=== PATIENT | female | born 1990 | race Caucasian/White ===

== ENCOUNTER 2017-04-21 18:56 | Emergency (ER) | payer OTHER ==
--- NOTE | 2017-04-21 20:43 | ED Physician Documentation ---
PD HPI LOWER EXT INJURY - Stated complaint Stated Complaint: KNEE INJURY - Chief complaint Chief Complaint: Ext Problem - History obtained from History obtained from: Patient - History of Present Illness PD HPI LOW EXT INJURY LOCATION: Right, Knee Type of injury: Fall, Twist Where injury occurred: Street Timing - onset: How many days ago (2) Timing - details: Abrupt onset, Waxing and waning Pain level now: 6 Improved by: Rest Worsened by: Moving Associated symptoms: No: Weakness, Numbness Recently seen: Not recently seen - Additional information Additional information: while running a foot race this weekend ([employer]), patient fell and twisted right knee. She says it did not hurt very much at the time, but that night (Friday night, two night ago from this current ED visit), it began hurting. Since then, it has become increasingly painful, particularly with movement or weight- bearing. Review of Systems Musculoskeletal: reports: Joint pain, Pain with weight bearing Neurologic: denies: Focal weakness, Numbness PD PAST MEDICAL HISTORY - Past Medical History Past Medical History: No - Past Surgical History Past Surgical History: No - Present Medications Home Medications: Ambulatory Orders Medication Instructions Recorded Confirmed No Known Home Medications [No 04/21/17 04/21/17 Known Home Medications] - Allergies Allergies/Adverse Reactions: Allergies Allergy/AdvReac Type Severity Reaction Status Date / Time No Known Drug Allergies Allergy Verified 04/21/17 19:05 PD ED PE NORMAL - Vitals Vital signs reviewed: Yes - General General: Alert and oriented X 3, No acute distress, Well developed/nourished - Derm Derm: Normal color, Warm and dry - Extremities Extremities: No deformity, No edema, Other (full ROM right knee, but c/o increasing pain with full flexion) - Neuro Neuro: No motor deficit, No sensory deficit PD ED PE EXPANDED - Extremities Extremities: Tenderness (mild direct patellar tenderness.) Results - Vitals Vitals: Vital Signs - 24 hr 04/21/17 04/21/17 19:02 21:53 Temperature 36.7 C 36.6 C Heart Rate 75 65 Respiratory 18 16 Rate Blood Pressure 136/86 H 124/78 O2 Saturation 97 96 Oxygen O2 Source Room air - Rads (name of study) right knee xrays Radiology: Prelim report reviewed, See rad report PD MEDICAL DECISION MAKING - ED course Complexity details: reviewed results, re-evaluated patient, considered differential, d/w patient Departure - Departure Disposition: 01 Home, Self Care Clinical Impression: Right knee sprain Condition: Good Instructions: ED Bandage Elastic Wrap, ED Crutch Walking, ED Sprain Knee Follow-Up: PALMER KOHLER [Primary Care Provider] - Discharge Date/Time: 04/21/17 22:20
--- NOTE | 2017-04-21 21:49 | XRAY Preliminary Report ---
Exam: XR Knee 3 View RT IMPRESSION: Normal knee radiography. [facility] SITE ID: [id number]
[2017-04-21 21:57] VITALS: BP 124/78
--- NOTE | 2017-04-21 22:00 | XRAY Report ---
EXAM: RIGHT KNEE RADIOGRAPHY EXAM DATE: 04/21/2017 09:24 PM. CLINICAL HISTORY: Lateral pain after a fall. COMPARISON: None. TECHNIQUE: 3 views. FINDINGS: Bones: Normal. No fractures or bone lesions. Joints: Normal. No effusion. No subluxations. Soft Tissues: Normal. No soft tissue swelling. IMPRESSION: Normal knee radiography. [facility] Referring Provider Line: [phone] SITE ID: [id number]
== END 2017-04-21 22:20 | disposition home or self-care (01) ==
LOC: ED 18:56
DX: S83.91XA Sprain of unspecified site of right knee, initial encounter (principal); W01.0XXA Fall on same level from slipping, tripping and stumbling without subsequent striking against object, initial encounter; Y93.02 Activity, running; Y92.488 Other paved roadways as the place of occurrence of the external cause
CPT/HCPCS: 99282; 99283

== ENCOUNTER 2017-09-07 11:04 | Emergency (ER) | payer OTHER ==
[2017-09-07] MEDS ORDERED: MECLIZINE 12.5 MG TABLET PO STA (11:53)
[2017-09-07] MEDS ORDERED: DEXAMETHASONE 10 MG/ML VIAL PO STA (11:53)
[2017-09-07] MEDS ORDERED: ONDANSETRON ODT 4 MG TABLET TL STA (11:53)
[2017-09-07] MEDS ORDERED: CHERRY SYRUP 10 ML UDC PO ONE (12:08)
[2017-09-07 12:54] VITALS: BP 106/54
--- NOTE | 2017-09-07 13:32 | ED Physician Documentation ---
History of Present Illness - Stated complaint Stated Complaint: DIZZINESS - Chief complaint Chief Complaint: Neuro - History obtained from History obtained from: Patient, Family - History of Present Illness Timing: Enter time (0700), Today - Additonal information Additional information: 26-year-old female was well yesterday she woke this morning with profound dizziness leading to nausea as well. She has had some dry heaves. She is has room spinning dizziness. She was not ill previously. Review of Systems Constitutional: denies: Fever, Chills, Fatigue Eyes: denies: Decreased vision Ears: denies: Ear pain Nose: denies: Congestion Throat: denies: Sore throat Cardiac: denies: Chest pain / pressure, Palpitations Respiratory: denies: Dyspnea, Cough GI: denies: Abdominal Pain, Nausea, Vomiting : denies: Dysuria, Frequency Skin: denies: Rash Musculoskeletal: denies: Neck pain, Back pain Neurologic: reports: Other (Dizziness). 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 - Present Medications Home Medications: Ambulatory Orders Medication Instructions Recorded Confirmed Implant Bc 1 09/07/17 Meclizine HCl 25 mg PO Q6HR PRN #20 tab.chew 09/07/17 Ondansetron Odt [Zofran] 4 mg TL Q6H PRN #10 tablet 09/07/17 - Allergies Allergies/Adverse Reactions: Allergies Allergy/AdvReac Type Severity Reaction Status Date / Time No Known Drug Allergies Allergy Verified 09/07/17 11:08 - Social History Does the pt smoke?: No Smoking Status: Never smoker Does the pt drink ETOH?: Yes Does the pt have substance abuse?: No - Immunizations Immunizations are current?: Yes PD ED PE NORMAL - Vitals Vital signs reviewed: Yes (Normal) - General General: Alert and oriented X 3, Well developed/nourished - HEENT HEENT: Atraumatic, PERRL, EOMI, Ears normal, Moist mucous membranes, Pharynx benign, Dentition benign, Other (There are 4 beats of nystagmus to the left 3 to the right) - Neck Neck: Supple, no meningeal sign, No bony TTP - Cardiac Cardiac: RRR, No murmur - Respiratory Respiratory: No respiratory distress, Clear bilaterally - Abdomen Abdomen: Soft, Non tender - Back Back: No CVA TTP, No spinal TTP - Derm Derm: Normal color, Warm and dry, No rash - Extremities Extremities: No deformity, No edema - Neuro Neuro: No motor deficit, No sensory deficit Eye Opening: Spontaneous Motor: Obeys Commands Verbal: Oriented GCS Score: 15 - Psych Psych: Normal mood, Normal affect Results - Vitals Vitals: Vital Signs - 24 hr 09/07/17 09/07/17 09/07/17 11:06 12:26 12:54 Temperature 36 C L Heart Rate 77 59 L 52 L Respiratory 18 12 Rate Blood Pressure 129/75 101/64 106/54 L O2 Saturation 100 100 100 Oxygen O2 Source Room air PD MEDICAL DECISION MAKING - ED course Complexity details: considered differential, d/w patient, d/w family ED course: 26-year-old female with acute vertigo appears to have labyrinthitis. This has occurred at a time where a number of cases of labyrinthitis have been present in the department in the past 3 weeks.Here in the emergency department she is administered dexamethasone 10 mg orally meclizine 25 mg and Zofran 4 mg.She has marked improvement in her dizziness and symptoms. Departure - Departure Disposition: 01 Home, Self Care Clinical Impression: Labyrinthitis Qualifiers: Laterality: bilateral Qualified Code(s): H83.03 - Labyrinthitis, bilateral Condition: Stable Instructions: ED Labyrinthitis Follow-Up: PAMLER KOHLER [Primary Care Provider] - Prescriptions: Meclizine HCl 25 mg PO Q6HR PRN #20 tab.chew PRN Reason: Dizziness Ondansetron Odt [Zofran] 4 mg TL Q6H PRN #10 tablet PRN Reason: Nausea / Vomiting Forms: Activity restrictions
== END 2017-09-07 13:39 | disposition home or self-care (01) ==
LOC: ED 11:04
DX: H83.03 Labyrinthitis, bilateral (principal)
CPT/HCPCS: 99283; A9270; Q0162

== ENCOUNTER 2018-04-05 18:53 | Emergency (ER) | payer OTHER ==
--- NOTE | 2018-04-05 19:44 | ED Physician Documentation ---
PD HPI HEAD INJURY - Stated complaint Stated Complaint: PARKER/VOMITING - Chief complaint Chief Complaint: Neuro - History obtained from History obtained from: Patient - History of Present Illness Mechanism of head injury: Blow (Around 330 this afternoon she was doing chin ups and hit the bar. She developed a headache and several episodes of vomiting , all of which are improved at this juncture. She still feels a little out of it but the headache is gone and the nausea is only mild. 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 - Present Medications Home Medications: Ambulatory Orders Medication Instructions Recorded Confirmed No Known Home Medications [No 04/05/18 04/05/18 Known Home Medications] - Allergies Allergies/Adverse Reactions: Allergies Allergy/AdvReac Type Severity Reaction Status Date / Time No Known Drug Allergies Allergy Verified 04/05/18 18:58 - Social History Does the pt smoke?: No Smoking Status: Never smoker Does the pt drink ETOH?: No Does the pt have substance abuse?: No - Immunizations Immunizations are current?: Yes - POLST Patient has POLST: No PD ED PE NORMAL - Vitals Vital signs reviewed: Yes - General General: Alert and oriented X 3, No acute distress - HEENT HEENT: PERRL, EOMI - Neck Neck: Supple, no meningeal sign, No bony TTP - Neuro Neuro: Alert and oriented X 3, sampler radioactive waste 2-12 intact Eye Opening: Spontaneous Motor: Obeys Commands Verbal: Oriented GCS Score: 15 - Psych Psych: Normal mood, Normal affect Results - Vitals Vitals: Vital Signs - 24 hr 04/05/18 18:56 Temperature 36.4 C L Heart Rate 60 Respiratory 18 Rate Blood Pressure 133/67 H O2 Saturation 98 Oxygen O2 Source Room air PD MEDICAL DECISION MAKING - ED course ED course: No hard findings and improving symptoms, I discussed potentially a CT scan with her which she declined and will have her friend watch her at home. - Sepsis Event Vital Signs: Vital Signs - 24 hr 04/05/18 18:56 Temperature 36.4 C L Heart Rate 60 Respiratory 18 Rate Blood Pressure 133/67 H O2 Saturation 98 Oxygen O2 Source Room air Departure - Departure Disposition: 01 Home, Self Care Clinical Impression: Concussion Qualifiers: Encounter type: initial encounter Loss of consciousness presence/duration: without LOC Qualified Code(s): S06.0X0A - Concussion without loss of consciousness, initial encounter Condition: Good Record reviewed to determine appropriate education?: Yes Instructions: ED Head Injury Closed Comments: Have your roommate watch you, check on you at least once an hour till midnight. Return for new or worsening symptoms. Forms: Activity restrictions
[2018-04-05 20:02] VITALS: BP 116/78
== END 2018-04-05 20:02 | disposition home or self-care (01) ==
LOC: ED 18:53
DX: S06.0X0A Concussion without loss of consciousness, initial encounter (principal); W21.89XA Striking against or struck by other sports equipment, initial encounter; Y93.B2 Activity, push-ups, pull-ups, sit-ups
CPT/HCPCS: 99282; 99283

== ENCOUNTER 2018-05-03 09:22 | Emergency (ER) | payer OTHER ==
[2018-05-03] MEDS ORDERED: SODIUM CHLORIDE 0.9% 1,000 ML IV ONE (10:44)
[2018-05-03] MEDS ORDERED: ONDANSETRON 4 MG/2 ML VIAL IVP STA (10:44)
--- NOTE | 2018-05-03 10:46 | ED Physician Documentation ---
PD HPI NVD - Stated complaint Stated Complaint: ABD PX/N/V/NO VOIDING 24 HRS - Chief complaint Chief Complaint: Abd Pain - History obtained from History obtained from: Patient - History of Present Illness Timing - onset: Enter time (0200), Yesterday Timing - duration: Hours (30) Timing - details: Abrupt onset, Still present Associated symptoms: Abdominal pain Contributing factors: Alcohol use Improved by: Laying still, Vomiting Similar symptoms before: Diagnosis (labyrinthitis) Recently seen: Not recently seen - Additonal information Additional information: 27-year-old female states that she was out drinking 2 nights ago and at about 2: 00 morning she developed nausea and vomiting she has had vomiting nonstop since then. She does have some generalized abdominal pain. Review of Systems Constitutional: reports: Fatigue. denies: Fever Eyes: denies: Decreased vision Ears: denies: Ear pain Nose: denies: Congestion Throat: denies: Sore throat Cardiac: denies: Chest pain / pressure, Palpitations Respiratory: denies: Dyspnea, Cough GI: reports: Abdominal Pain, Nausea, Vomiting. 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 - Present Medications Home Medications: Ambulatory Orders Medication Instructions Recorded Confirmed Ondansetron Odt [Zofran] 4 mg TL Q6H PRN #10 tablet 05/03/18 - Allergies Allergies/Adverse Reactions: Allergies Allergy/AdvReac Type Severity Reaction Status Date / Time No Known Drug Allergies Allergy Verified 05/03/18 09:31 - Social History Does the pt smoke?: No Smoking Status: Never smoker Does the pt drink ETOH?: No Does the pt have substance abuse?: No - Immunizations Immunizations are current?: Yes - POLST Patient has POLST: No PD ED PE NORMAL - Vitals Vital signs reviewed: Yes (hypertensive) - General General: Alert and oriented X 3, No acute distress, Well developed/nourished - HEENT HEENT: Atraumatic, PERRL, EOMI, Other (dry mucous membranes) - Neck Neck: Supple, no meningeal sign, No bony TTP - Cardiac Cardiac: RRR, No murmur - Respiratory Respiratory: No respiratory distress, Clear bilaterally - Abdomen Abdomen: Soft, Other (mild tenderness) - Back Back: No CVA TTP, No spinal TTP - Derm Derm: Normal color, Warm and dry, No rash - Extremities Extremities: No deformity, No edema - Neuro Neuro: Alert and oriented X 3, No motor deficit, No sensory deficit, Normal speech Results - Vitals Vitals: Vital Signs - 24 hr 05/03/18 05/03/18 09:29 13:34 Temperature 36.8 C Heart Rate 63 68 Respiratory 20 16 Rate Blood Pressure 146/102 H 136/87 H O2 Saturation 100 100 Oxygen O2 Source Room air - Labs Labs: Laboratory Tests 05/03/18 05/03/18 05/03/18 10:30 10:30 13:00 WBC 7.6 RBC 4.91 Hgb 14.1 Hct 41.6 MCV 84.9 MCH 28.8 MCHC 33.9 RDW 13.8 Plt Count 241 MPV 8.5 Neut # (Auto) 6.1 Lymph # (Auto) 1.1 L [place] # (Auto) 0.4 Eos # (Auto) 0.0 Baso # (Auto) 0.0 Absolute Nucleated RBC 0.00 Nucleated RBC % 0.0 Sodium 135 Potassium 4.1 Chloride 100 L Carbon Dioxide 26 Anion Gap 9.0 BUN 14 Creatinine 0.8 Estimated GFR (MDRD) 87 L Glucose 132 H Calcium 9.2 Total Bilirubin 1.1 H AST 35 ALT 36 Alkaline Phosphatase 62 Total Protein 7.5 Albumin 4.5 Globulin 3.0 Albumin/Globulin Ratio 1.5 Lipase 35 Urine Color YELLOW Urine Clarity CLEAR Urine pH 7.5 Ur Specific [place] 1.015 Urine Protein 30 H Urine Glucose (UA) NEGATIVE Urine Ketones NEGATIVE Urine Occult Blood NEGATIVE Urine Nitrite NEGATIVE Urine Bilirubin NEGATIVE Urine Urobilinogen 0.2 (NORMAL) Ur Leukocyte Esterase NEGATIVE Urine RBC None Seen Urine WBC 0-3 Ur Squamous Epith Cells FEW Squamous Urine Bacteria None Seen Ur Microscopic Review INDICATED Urine Culture Comments NOT INDICATED Urine HCG, Qual 05/03/18 13:00 WBC RBC Hgb Hct MCV MCH MCHC RDW Plt Count MPV Neut # (Auto) Lymph # (Auto) [place] # (Auto) Eos # (Auto) Baso # (Auto) Absolute Nucleated RBC Nucleated RBC % Sodium Potassium Chloride Carbon Dioxide Anion Gap BUN Creatinine Estimated GFR (MDRD) Glucose Calcium Total Bilirubin AST ALT Alkaline Phosphatase Total Protein Albumin Globulin Albumin/Globulin Ratio Lipase Urine Color Urine Clarity Urine pH Ur Specific [place] 1.015 Urine Protein Urine Glucose (UA) Urine Ketones Urine Occult Blood Urine Nitrite Urine Bilirubin Urine Urobilinogen Ur Leukocyte Esterase Urine RBC Urine WBC Ur Squamous Epith Cells Urine Bacteria Ur Microscopic Review Urine Culture Comments Urine HCG, Qual NEGATIVE Procedures - IVC sono (time) 1035 Bedside IVC sono: IVC measures (cm) (1.27), Dehydration (mild) PD MEDICAL DECISION MAKING - ED course Complexity details: reviewed results, re-evaluated patient, considered differential, d/w patient, d/w family ED course: 27 y/o female with acute gastritis with vomiting is given IV saline and does not have much relief with the zofran she is subsequently given PO phenergan. - Sepsis Event Vital Signs: Vital Signs - 24 hr 05/03/18 05/03/18 09:29 13:34 Temperature 36.8 C Heart Rate 63 68 Respiratory 20 16 Rate Blood Pressure 146/102 H 136/87 H O2 Saturation 100 100 Oxygen O2 Source Room air Departure - Departure Disposition: 01 Home, Self Care Clinical Impression: Gastroenteritis Condition: Stable Instructions: ED Gastroenteritis Vs Food Poison Follow-Up: PALMER KOHLER [Primary Care Provider] - Prescriptions: Ondansetron Odt [Zofran] 4 mg TL Q6H PRN #10 tablet PRN Reason: Nausea / Vomiting Discharge Date/Time: 05/03/18 13:35
[2018-05-03 10:49] LABS: BASOPHILS % (AUTO) 0.4 %; HGB - HEMOGLOBIN 14.1 g/dL (12.0-16.0); LYMPHOCYTES # (AUTO) 1.1 10^3/uL (1.5-3.5); LYMPHOCYTES % (AUTO) 14.8 %; MEAN CORPUSCULAR HEMOGLOBIN 28.8 pg (27.0-31.0); MEAN CORPUSCULAR HGB CONC 33.9 g/dL (32.0-36.0); MEAN CORPUSCULAR VOLUME 84.9 fL (81.0-99.0); MEAN PLATELET VOLUME 8.5 fL (7.9-10.8); MONOCYTES # (AUTO) 0.4 10^3/uL (0.0-1.0); MONOCYTES % (AUTO) 5.2 %; NEUTROPHILS # (AUTO) 6.1 10^3/uL (1.5-6.6); NEUTROPHILS % (AUTO) 79.6 %; PLT - PLATELET COUNT 241 10^3/uL (130-450); RED BLOOD COUNT 4.91 10^6/uL (4.20-5.40); RED CELL DISTRIBUTION WIDTH 13.8 % (12.0-15.0); WHITE BLOOD COUNT 7.6 x10^3/uL (4.8-10.8)
[2018-05-03 11:02] LABS: ALBUMIN 4.5 g/dL (3.2-5.5); ALBUMIN/GLOBULIN RATIO 1.5 (1.0-2.2); BILIRUBIN,TOTAL 1.1 mg/dL (0.2-1.0); CALCIUM 9.2 mg/dL (8.5-10.3); CREATININE 0.8 mg/dL (0.4-1.0); TOTAL PROTEIN 7.5 g/dL (6.7-8.2)
[2018-05-03] MEDS ORDERED: PROMETHAZINE 25 MG TABLET PO STA (12:58)
[2018-05-03 13:12] LABS: BILIRUBIN,URINE NEGATIVE (NEGATIVE); GLUCOSE, URINE (UA) NEGATIVE (NEGATIVE); KETONES,URINE (UA) NEGATIVE (NEGATIVE); LEUKOCYTE ESTERASE, URINE NEGATIVE (NEGATIVE); NITRITE,URINE NEGATIVE (NEGATIVE); OCCULT BLOOD,URINE NEGATIVE (NEGATIVE); PH,URINE 7.5 PH (5.0-7.5); PROTEIN,URINE 30 mg/dL (NEGATIVE); UROBILINOGEN,URINE 0.2 (NORMAL) E.U./dL (NORMAL)
[2018-05-03 13:14] LABS: CLARITY,URINE CLEAR (CLEAR); HCG UR QUAL NEGATIVE
[2018-05-03 13:19] LABS: BACTERIA,URINE None Seen /HPF (None Seen); RBC,URINE None Seen /HPF (0-5); SQUAMOUS EPITHELIAL CELL,UR FEW Squamous (<= Few)
[2018-05-03 13:36] VITALS: BP 136/87
== END 2018-05-03 13:35 | disposition home or self-care (01) ==
LOC: ED 09:22
DX: K52.9 Noninfective gastroenteritis and colitis, unspecified (principal); E86.0 Dehydration
CPT/HCPCS: 36415; 80053; 81001; 81025; 83690; 85025; 96361; 96374; 99283; Q0169; 81003; 87086

== ENCOUNTER 2018-05-10 11:23 | Emergency (ER) | payer OTHER ==
[2018-05-10 11:57] LABS: BILIRUBIN,URINE NEGATIVE (NEGATIVE); GLUCOSE, URINE (UA) NEGATIVE (NEGATIVE); KETONES,URINE (UA) NEGATIVE (NEGATIVE); LEUKOCYTE ESTERASE, URINE NEGATIVE (NEGATIVE); NITRITE,URINE NEGATIVE (NEGATIVE); OCCULT BLOOD,URINE NEGATIVE (NEGATIVE); PROTEIN,URINE TRACE mg/dL (NEGATIVE); UROBILINOGEN,URINE 0.2 (NORMAL) E.U./dL (NORMAL)
[2018-05-10 11:58] LABS: CLARITY,URINE CLOUDY (CLEAR)
[2018-05-10 12:00] LABS: BASOPHILS % (AUTO) 0.7 %; HGB - HEMOGLOBIN 15.7 g/dL (12.0-16.0); LYMPHOCYTES # (AUTO) 1.2 10^3/uL (1.5-3.5); MEAN CORPUSCULAR HEMOGLOBIN 28.7 pg (27.0-31.0); MEAN CORPUSCULAR HGB CONC 34.5 g/dL (32.0-36.0); MEAN CORPUSCULAR VOLUME 83.4 fL (81.0-99.0); MEAN PLATELET VOLUME 8.1 fL (7.9-10.8); MONOCYTES # (AUTO) 0.2 10^3/uL (0.0-1.0); NEUTROPHILS # (AUTO) 4.3 10^3/uL (1.5-6.6); NEUTROPHILS % (AUTO) 75.3 %; PLT - PLATELET COUNT 315 10^3/uL (130-450); RED BLOOD COUNT 5.45 10^6/uL (4.20-5.40); RED CELL DISTRIBUTION WIDTH 13.4 % (12.0-15.0); WHITE BLOOD COUNT 5.8 x10^3/uL (4.8-10.8)
[2018-05-10 12:01] LABS: HCG UR QUAL NEGATIVE
[2018-05-10 12:12] LABS: ALBUMIN 4.9 g/dL (3.2-5.5); ALBUMIN/GLOBULIN RATIO 1.5 (1.0-2.2); CALCIUM 9.5 mg/dL (8.5-10.3); CREATININE 0.7 mg/dL (0.4-1.0); TOTAL PROTEIN 8.1 g/dL (6.7-8.2)
[2018-05-10 12:14] LABS: BACTERIA,URINE Few /HPF (None Seen); RBC,URINE 0-5 /HPF (0-5); SQUAMOUS EPITHELIAL CELL,UR MOD Squamous (<= Few)
[2018-05-10] MEDS ORDERED: LIDOCAINE VISCOUS 2% 15 ML UDC MM STA ×2 (12:41→13:50)
[2018-05-10] MEDS ORDERED: SODIUM CHLORIDE 0.9% 1,000 ML IV ONE (12:41)
[2018-05-10] MEDS ORDERED: MAG HYDROX/AL HYDROX/SIMETH 30 ML UDC PO STA ×2 (12:42→13:51)
[2018-05-10] MEDS ORDERED: SUCRALFATE 1 GM/10 ML UDC PO STA ×2 (12:42→13:51)
--- NOTE | 2018-05-10 12:47 | ED Physician Documentation ---
PD HPI ABD PAIN - Stated complaint Stated Complaint: ABD PX - Chief complaint Chief Complaint: Abd Pain - History obtained from History obtained from: Patient - History of Present Illness Timing - onset: How many weeks ago (1) Timing - duration: Weeks (1) Timing - details: Abrupt onset, Still present Quality: Sharp, Pain Location: Epigastric Radiation: Upper back Improved by: Meds Worsened by: Eating Associated symptoms: Nausea. No: Vomiting Similar symptoms before: Diagnosis (food poisoning) Recently seen: Clinic - Additional information Additional information: 27-year-old female seen in the emergency department 1 week ago with acute gastroenteritis with nausea and vomiting after night of drinking. She thought she might have food poisoning at that time. She had good relief of her symptoms with treatment but continued to have pain and has been into the see the clinic 3 times. She has recently been started on omeprazole. Despite this after 3 days of of treatment she has worse pain. She denies any use of ibuprofen Aleve aspirin or alcohol. 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 - Present Medications Home Medications: Ambulatory Orders Medication Instructions Recorded Confirmed Ondansetron Odt [Zofran] 4 mg TL Q6H PRN #10 tablet 05/03/18 Sucralfate [Carafate] 1 gm PO ACHS #30 tablet 05/10/18 - Allergies Allergies/Adverse Reactions: Allergies Allergy/AdvReac Type Severity Reaction Status Date / Time No Known Drug Allergies Allergy Verified 05/03/18 09:31 - Social History Does the pt smoke?: No Smoking Status: Never smoker Does the pt drink ETOH?: No Does the pt have substance abuse?: No - Immunizations Immunizations are current?: Yes - POLST Patient has POLST: No PD ED PE NORMAL - Vitals Vital signs reviewed: Yes (tachy and hypertensive) - General General: Alert and oriented X 3, Well developed/nourished, Other (The patient has the look of pain on her face with demi chef tone and flat affect. ) - HEENT HEENT: Atraumatic, PERRL, EOMI, Ears normal - Neck Neck: Supple, no meningeal sign, No bony TTP - Cardiac Cardiac: No murmur, Other (tachy to 100) - Respiratory Respiratory: No respiratory distress, Clear bilaterally - Abdomen Abdomen: Soft, Other (epigastric tenderness is reproducible ) - Back Back: No CVA TTP, No spinal TTP - Derm Derm: Normal color, Warm and dry, No rash - Extremities Extremities: No deformity, No edema - Neuro Neuro: Alert and oriented X 3, lab support service tech 2-12 intact, No motor deficit, No sensory deficit, Normal speech Eye Opening: Spontaneous Motor: Obeys Commands Verbal: Oriented GCS Score: 15 - Psych Psych: Normal mood, Normal affect Results - Vitals Vitals: Vital Signs - 24 hr 05/10/18 05/10/18 11:39 14:07 Temperature 36.9 C Heart Rate 110 H 77 Respiratory 16 18 Rate Blood Pressure 150/88 H 144/105 H O2 Saturation 100 100 Oxygen O2 Source Room air - Labs Labs: Laboratory Tests 05/10/18 05/10/18 05/10/18 11:55 11:55 11:55 WBC 5.8 RBC 5.45 H Hgb 15.7 Hct 45.5 MCV 83.4 MCH 28.7 MCHC 34.5 RDW 13.4 Plt Count 315 MPV 8.1 Neut # (Auto) 4.3 Lymph # (Auto) 1.2 L [place] # (Auto) 0.2 Eos # (Auto) 0.0 Baso # (Auto) 0.0 Absolute Nucleated RBC 0.00 Nucleated RBC % 0.0 Sodium 133 L Potassium 4.4 Chloride 98 L Carbon Dioxide 25 Anion Gap 10.0 BUN 13 Creatinine 0.7 Estimated GFR (MDRD) 101 Glucose 113 H Calcium 9.5 Total Bilirubin 1.0 AST 23 ALT 24 Alkaline Phosphatase 70 Total Protein 8.1 Albumin 4.9 Globulin 3.2 Albumin/Globulin Ratio 1.5 Lipase 40 Urine Color YELLOW Urine Clarity CLOUDY Urine pH 8.0 H Ur Specific [place] 1.015 Urine Protein TRACE Urine Glucose (UA) NEGATIVE Urine Ketones NEGATIVE Urine Occult Blood NEGATIVE Urine Nitrite NEGATIVE Urine Bilirubin NEGATIVE Urine Urobilinogen 0.2 (NORMAL) Ur Leukocyte Esterase NEGATIVE Urine RBC 0-5 Urine WBC 0-3 Ur Squamous Epith Cells MOD Squamous H Urine Bacteria Few Ur Microscopic Review INDICATED Urine Culture Comments NOT INDICATED Urine HCG, Qual NEGATIVE Procedures - IVC sono (time) 1235 Bedside IVC sono: IVC measures (cm) (1.72), IVC collapsed c insp (cm) (complete) , Dehydration (mild est at 1 liter deficit.) PD MEDICAL DECISION MAKING - ED course Complexity details: reviewed old records, reviewed results, re-evaluated patient , considered differential, d/w patient ED course: 27-year-old female with gastroenteritis a week ago has had persistent abdominal pain since that time. She has some relief of the pain with a GI cocktail consisting of viscous lidocaine Mylanta and Carafate. She has incomplete relief of the pain and she is subsequently given a second GI cocktail and Pepcid intravenously. She has further improvement in her pain. She will continue the Carafate and I have instructed her to continue taking her omeprazole and to follow-up with her primary care doctor especially if she has recurrence of her symptoms when she finishes her medications. - Sepsis Event Vital Signs: Vital Signs - 24 hr 05/10/18 05/10/18 11:39 14:07 Temperature 36.9 C Heart Rate 110 H 77 Respiratory 16 18 Rate Blood Pressure 150/88 H 144/105 H O2 Saturation 100 100 Oxygen O2 Source Room air Departure - Departure Disposition: 01 Home, Self Care Clinical Impression: Gastritis Qualifiers: Gastritis type: unspecified gastritis Chronicity: acute Gastritis bleeding: without bleeding Qualified Code(s): K29.00 - Acute gastritis without bleeding Condition: Stable Instructions: ED PUD Vs Gastritis Follow-Up: PALMER KOHLER [Primary Care Provider] - Prescriptions: Sucralfate [Carafate] 1 gm PO ACHS #30 tablet Forms: Activity restrictions
[2018-05-10] MEDS ORDERED: FAMOTIDINE 20 MG in SODIUM CHLORIDE 0.9% 50 ML IV STA (13:51)
[2018-05-10 14:49] VITALS: BP 142/105
== END 2018-05-10 14:56 | disposition home or self-care (01) ==
LOC: ED 11:23
DX: K29.70 Gastritis, unspecified, without bleeding (principal)
CPT/HCPCS: 36415; 80053; 81001; 81025; 83690; 85025; 96361; 96365; 99283; A9270; J7040; 81003; 87086

== ENCOUNTER 2018-05-11 21:10 | Emergency (ER) | payer OTHER ==
[2018-05-11] MEDS ORDERED: SODIUM CHLORIDE 0.9% 1,000 ML IV ONE (22:13)
[2018-05-11] MEDS ORDERED: METOCLOPRAMIDE 10 MG/2 ML VIAL IVP STA (22:13)
[2018-05-11] MEDS ORDERED: FAMOTIDINE 20 MG in SODIUM CHLORIDE 0.9% 50 ML IV ONE (22:13)
--- NOTE | 2018-05-11 22:25 | ED Physician Documentation ---
PD HPI ABD PAIN - Stated complaint Stated Complaint: ABD PX - Chief complaint Chief Complaint: Abd Pain - Additional information Additional information: 27-year-old female presents the emergency department with epigastric pain and nausea and vomiting for the past several days. The patient's been seen numerous times in the emergency department for similar. The patient currently is being treated for a Possible ulcer. The patient reports increased pain and nausea and vomiting today. The patient denies lower abdominal pain, vaginal bleeding or vaginal discharge or chest pain or shortness of breath. Symptoms are described as moderate. No radiation of symptoms. No specific triggering factors. No relieving factors Review of Systems Constitutional: denies: Fever, Chills Eyes: denies: Discharge Ears: denies: Ear pain Nose: denies: Rhinorrhea / runny nose Throat: denies: Sore throat Cardiac: denies: Chest pain / pressure GI: reports: Abdominal Pain, Nausea, Vomiting : denies: Dysuria Musculoskeletal: denies: Neck pain Neurologic: denies: Generalized weakness Immunocompromised: denies: Chemotherapy PD PAST MEDICAL HISTORY - Past Medical History Cardiovascular: None Respiratory: None Neuro: None Endocrine/Autoimmune: None GI: Ulcers DISABILITY EXAMINER: None : None HEENT: None Psych: None Musculoskeletal: None Derm: None - Past Surgical History Past Surgical History: Yes /DISABILITY EXAMINER: Breast reduction - Present Medications Home Medications: Ambulatory Orders Medication Instructions Recorded Confirmed Ondansetron Odt [Zofran] 4 mg TL Q6H PRN #10 tablet 05/03/18 Sucralfate [Carafate] 1 gm PO ACHS #30 tablet 05/10/18 - Allergies Allergies/Adverse Reactions: Allergies Allergy/AdvReac Type Severity Reaction Status Date / Time No Known Drug Allergies Allergy Verified 05/11/18 21:23 - Social History Does the pt smoke?: No Smoking Status: Never smoker Does the pt drink ETOH?: No Does the pt have substance abuse?: No - Immunizations Immunizations are current?: Yes - POLST Patient has POLST: No PD ED PE NORMAL - General General: Alert and oriented X 3, No acute distress - HEENT HEENT: Atraumatic, PERRL, EOMI, Ears normal - Neck Neck: Supple, no meningeal sign - Cardiac Cardiac: RRR - Respiratory Respiratory: No respiratory distress, Clear bilaterally - Abdomen Abdomen: Soft, Non distended. No: Non tender (The patient has tenderness in the upper abdomen, no rebound or peritoneal signs. The patient has no lower abdominal tenderness) - Back Back: No CVA TTP - Derm Derm: Normal color - Psych Psych: Normal mood Results - Vitals Vitals: Vital Signs - 24 hr 05/11/18 21:18 Temperature 37.0 C Heart Rate 68 Respiratory 18 Rate Blood Pressure 158/104 H O2 Saturation 100 Oxygen O2 Source Room air - Labs Labs: Laboratory Tests 05/11/18 05/11/18 05/12/18 22:38 22:38 00:05 WBC 8.2 RBC 5.17 Hgb 15.1 Hct 43.1 MCV 83.5 MCH 29.2 MCHC 34.9 RDW 13.2 Plt Count 261 MPV 8.5 Neut # (Auto) 5.7 Lymph # (Auto) 1.9 [place] # (Auto) 0.3 Eos # (Auto) 0.0 Baso # (Auto) 0.1 Absolute Nucleated RBC 0.00 Nucleated RBC % 0.0 Sodium 134 L Potassium 3.4 L Chloride 98 L Carbon Dioxide 26 Anion Gap 10.0 BUN 15 Creatinine 0.8 Estimated GFR (MDRD) 87 L Glucose 111 H Calcium 9.7 Total Bilirubin 0.8 AST 22 ALT 22 Alkaline Phosphatase 73 Total Protein 8.2 Albumin 5.0 Globulin 3.2 Albumin/Globulin Ratio 1.6 Lipase 72 H Urine Color YELLOW Urine Clarity CLEAR Urine pH 8.0 H Ur Specific [place] 1.010 Urine Protein NEGATIVE Urine Glucose (UA) NEGATIVE Urine Ketones TRACE Urine Occult Blood NEGATIVE Urine Nitrite NEGATIVE Urine Bilirubin NEGATIVE Urine Urobilinogen 0.2 (NORMAL) Ur Leukocyte Esterase NEGATIVE Ur Microscopic Review NOT INDICATED Urine Culture Comments NOT INDICATED Urine HCG, Qual NEGATIVE - Rads (name of study) CT abd\pelvis Radiology: Final report received (1. Appendix is partially seen and visualized portions appear normal. 2. Moderate to large amount of stool in the colon, right greater than left. 3. No acute inflammatory or obstructive process identified. ) PD MEDICAL DECISION MAKING - ED course ED course: The patient's workup does not reveal any significant abnormality that explains her symptoms. On reevaluation the patient resting comfortably and currently appears appropriate for discharge home and on point management as an outpatient. The patient is scheduled to see GI. I discussed warning signs and recommended returning to the emergency department immediately for any worsening or any concerns. - Sepsis Event Vital Signs: Vital Signs - 24 hr 05/11/18 21:18 Temperature 37.0 C Heart Rate 68 Respiratory 18 Rate Blood Pressure 158/104 H O2 Saturation 100 Oxygen O2 Source Room air Departure - Departure Disposition: 01 Home, Self Care Clinical Impression: Abdominal pain Qualifiers: Abdominal location: epigastric Qualified Code(s): R10.13 - Epigastric pain Condition: Good Instructions: Abdominal Pain Follow-Up: PALMER KOHLER [Primary Care Provider] - Comments: Please return to the emergency department for worsening symptoms or any concerns
[2018-05-11] MEDS ORDERED: fentaNYL 100 MCG/2 ML VIAL IVP STA (22:30)
[2018-05-11] MEDS ORDERED: MAG HYDROX/AL HYDROX/SIMETH 30 ML UDC PO STA (22:30)
[2018-05-11] MEDS ORDERED: IOPAMIDOL-300 100 ML VIAL ONE (22:43)
[2018-05-11] MEDS ORDERED: IOPAMIDOL-300 50 ML VIAL ONE (22:43)
[2018-05-11 22:54] LABS: BASOPHILS # (AUTO) 0.1 10^3/uL (0.0-0.1); BASOPHILS % (AUTO) 1.3 %; EOSINOPHILS % (AUTO) 0.5 %; HGB - HEMOGLOBIN 15.1 g/dL (12.0-16.0); LYMPHOCYTES # (AUTO) 1.9 10^3/uL (1.5-3.5); LYMPHOCYTES % (AUTO) 23.8 %; MEAN CORPUSCULAR HEMOGLOBIN 29.2 pg (27.0-31.0); MEAN CORPUSCULAR HGB CONC 34.9 g/dL (32.0-36.0); MEAN CORPUSCULAR VOLUME 83.5 fL (81.0-99.0); MEAN PLATELET VOLUME 8.5 fL (7.9-10.8); MONOCYTES # (AUTO) 0.3 10^3/uL (0.0-1.0); NEUTROPHILS # (AUTO) 5.7 10^3/uL (1.5-6.6); NEUTROPHILS % (AUTO) 70.4 %; PLT - PLATELET COUNT 261 10^3/uL (130-450); RED BLOOD COUNT 5.17 10^6/uL (4.20-5.40); RED CELL DISTRIBUTION WIDTH 13.2 % (12.0-15.0); WHITE BLOOD COUNT 8.2 x10^3/uL (4.8-10.8)
[2018-05-11 23:08] LABS: ALBUMIN/GLOBULIN RATIO 1.6 (1.0-2.2); BILIRUBIN,TOTAL 0.8 mg/dL (0.2-1.0); CALCIUM 9.7 mg/dL (8.5-10.3); CREATININE 0.8 mg/dL (0.4-1.0); TOTAL PROTEIN 8.2 g/dL (6.7-8.2)
[2018-05-11] MEDS ORDERED: PROMETHAZINE INJ 25 MG in SODIUM CHLORIDE 0.9% 50 ML IV STA (23:42)
[2018-05-11] MEDS ORDERED: IOPAMIDOL-300 100 ML VIAL IVP ONE (23:57)
[2018-05-11] MEDS ORDERED: IOPAMIDOL-300 50 ML VIAL PO ONE (23:57)
[2018-05-12 00:16] LABS: BILIRUBIN,URINE NEGATIVE (NEGATIVE); GLUCOSE, URINE (UA) NEGATIVE (NEGATIVE); KETONES,URINE (UA) TRACE mg/dL (NEGATIVE); LEUKOCYTE ESTERASE, URINE NEGATIVE (NEGATIVE); NITRITE,URINE NEGATIVE (NEGATIVE); OCCULT BLOOD,URINE NEGATIVE (NEGATIVE); PROTEIN,URINE NEGATIVE (NEGATIVE); UROBILINOGEN,URINE 0.2 (NORMAL) E.U./dL (NORMAL)
[2018-05-12 00:18] LABS: CLARITY,URINE CLEAR (CLEAR); HCG UR QUAL NEGATIVE
--- NOTE | 2018-05-12 00:36 | CT Report ---
Reason: abdominal pain Procedure Date: 05/11/2018 Accession Number: [id number] / [id number] Procedure: CT - Abdomen/Pelvis W/ CPT Code: FULL RESULT: EXAM: CT ABDOMEN AND PELVIS EXAM DATE: 05/11/2018 11:59 PM. CLINICAL HISTORY: Abdominal pain. COMPARISONS: None. TECHNIQUE: Routine helical CT imaging was performed through the abdomen and pelvis. IV contrast: ISOVUE 300 100mL. Enteric contrast: No. Reconstructions: Coronal and sagittal. In accordance with CT protocol optimization, one or more of the following dose reduction techniques were utilized for this exam: automated exposure control, adjustment of mA and/or KV based on patient size, or use of iterative reconstructive technique. FINDINGS: Lung Bases: Unremarkable. Liver: No focal lesion identified. Gallbladder/Bile Ducts: Unremarkable. Spleen: Normal. Pancreas: Normal. Adrenal Glands: Normal. Kidneys: Normal. No masses or hydronephrosis. Peritoneal Cavity/Bowel: Moderate to large amount of stool in the colon. No bowel obstruction seen. No diverticulitis. No free air or free fluid. No lymphadenopathy. Appendix is partially seen and visualized portions appear normal. Pelvic Organs: Normal. The bladder and visualized pelvic organs are within normal limits. Vasculature: No aneurysms or other significant abnormality. Bones: No significant abnormality. Other: None. IMPRESSION: 1. Appendix is partially seen and visualized portions appear normal. 2. Moderate to large amount of stool in the colon, right greater than left. 3. No acute inflammatory or obstructive process identified. RADIA
[2018-05-12 00:54] VITALS: BP 156/102
== END 2018-05-12 00:55 | disposition home or self-care (01) ==
LOC: ED 21:10
DX: R10.13 Epigastric pain (principal)
CPT/HCPCS: 36415; 74177; 80053; 81003; 81025; 83690; 85025; 96365; 96367; 96375; 99282; 99283; A9270; J2765; J7040; Q9967; 81001; 87086

== ENCOUNTER 2019-09-01 00:36 | Emergency (ER) | payer OTHER ==
[2019-09-01 00:55] VITALS: BP 125/66
[2019-09-01 01:20] LABS: BILIRUBIN,URINE NEGATIVE (NEGATIVE); GLUCOSE, URINE (UA) NEGATIVE (NEGATIVE); KETONES,URINE (UA) NEGATIVE (NEGATIVE); LEUKOCYTE ESTERASE, URINE NEGATIVE (NEGATIVE); NITRITE,URINE NEGATIVE (NEGATIVE); OCCULT BLOOD,URINE NEGATIVE (NEGATIVE); PROTEIN,URINE NEGATIVE (NEGATIVE); UROBILINOGEN,URINE 0.2 (NORMAL) E.U./dL (NORMAL)
[2019-09-01 01:21] LABS: CLARITY,URINE CLEAR (CLEAR)
[2019-09-01 01:25] LABS: BACTERIA,URINE Few /HPF (None Seen); RBC,URINE 0-5 /HPF (0-5); SQUAMOUS EPITHELIAL CELL,UR FEW Squamous (<= Few)
--- NOTE | 2019-09-01 02:15 | ED Physician Documentation ---
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 She has persistence of this back pain now and she is come to the emergency department for evaluation. She feels that she has some stretching leg pain from the lower inguinal area on the left toward her back as well. She does not have urinary symptoms she does not have fever or vomiting. 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 Specifically when she is on night shifts. Review of Systems Constitutional: denies: Fever Eyes: denies: Decreased vision Ears: denies: Ear pain Nose: denies: Congestion Throat: denies: Sore throat Cardiac: denies: Chest pain / pressure, Palpitations Respiratory: denies: Dyspnea, Cough GI: denies: Abdominal Pain, Nausea, Vomiting : denies: Dysuria, Frequency Musculoskeletal: reports: Back pain. denies: Neck pain, Extremity pain Neurologic: denies: Generalized weakness, Focal weakness, Numbness PD PAST MEDICAL HISTORY - Past Medical History Cardiovascular: None Respiratory: None Neuro: None Endocrine/Autoimmune: None GI: Ulcers DELPHI PROGRAMMER: None : None HEENT: None Psych: None Musculoskeletal: None Derm: None - Past Surgical History Past Surgical History: Yes /DELPHI PROGRAMMER: Breast reduction - Present Medications Home Medications: Ambulatory Orders Medication Instructions Recorded Confirmed Ondansetron Odt [Zofran] 4 mg TL Q6H PRN #10 tablet 05/03/18 Sucralfate [Carafate] 1 gm PO ACHS #30 tablet 05/10/18 - Allergies Allergies/Adverse Reactions: Allergies Allergy/AdvReac Type Severity Reaction Status Date / Time No Known Drug Allergies Allergy Verified 09/01/19 00:55 - Social History Does the pt smoke?: No Smoking Status: Never smoker Does the pt drink ETOH?: No Does the pt have substance abuse?: No - Immunizations Immunizations are current?: Yes - POLST Patient has POLST: No PD ED PE NORMAL - Vitals Vital signs reviewed: Yes (normal ) - General General: Alert and oriented X 3, No acute distress, Well developed/nourished - HEENT HEENT: Atraumatic, PERRL, EOMI - Neck Neck: Supple, no meningeal sign, No bony TTP - Cardiac Cardiac: RRR, No murmur - Respiratory Respiratory: No respiratory distress, Clear bilaterally - Abdomen Abdomen: Normal bowel sounds, Soft, Non tender, Non distended, No organomegaly - Back Back: No CVA TTP, No spinal TTP, Other (There is mild tenderness to the lower lumbar paraspinous muscles bilat ) - Derm Derm: Normal color, Warm and dry, No rash - Extremities Extremities: No deformity, No edema - Neuro Neuro: Alert and oriented X 3, digester operator 2-12 intact, No motor deficit, No sensory deficit, Normal speech Eye Opening: Spontaneous Motor: Obeys Commands Verbal: Oriented GCS Score: 15 - Psych Psych: Normal mood, Normal affect Results - Vitals Vitals: Vital Signs - 24 hr 09/01/19 00:52 Temperature 36.7 C Heart Rate 76 Respiratory 18 Rate Blood Pressure 125/66 O2 Saturation 100 Oxygen O2 Source Room air - Labs Labs: Laboratory Tests 09/01/19 01:00 Urine Color YELLOW Urine Clarity CLEAR Urine pH 6.0 Ur Specific [place] 1.025 Urine Protein NEGATIVE Urine Glucose (UA) NEGATIVE Urine Ketones NEGATIVE Urine Occult Blood NEGATIVE Urine Nitrite NEGATIVE Urine Bilirubin NEGATIVE Urine Urobilinogen 0.2 (NORMAL) Ur Leukocyte Esterase NEGATIVE Urine RBC 0-5 Urine WBC 0-3 Ur Squamous Epith Cells FEW Squamous Urine Bacteria Few Urine Culture Comments NOT INDICATED Procedures - Bedside sono Bedside sono by EMP: With his bedside ultrasound the pelvis is imaged there is a 15-week 6-day by biparietal diameter fetus that appears viable with a heart rate of 144. PD MEDICAL DECISION MAKING - ED course Complexity details: reviewed results, re-evaluated patient, considered differential, d/w patient, d/w family ED course: 28-year-old female with low back pain and no urinary symptoms has no evidence of urinary tract infection. She is and the 15-week fetus appears viable. Ultrasound images are shared with the mother and she is reassured. Departure - Departure Disposition: 01 Home, Self Care Clinical Impression: Discomfort during Condition: Stable Instructions: Preg Comfort Tips Follow-Up: PALMER KOHLER [Primary Care Provider] - Discharge Date/Time: 09/01/19 02:26
== END 2019-09-01 02:26 | disposition home or self-care (01) ==
LOC: ED 00:36
DX: O99.89 Other specified diseases and conditions complicating pregnancy, childbirth and the puerperium (principal); M54.5 Low back pain; Z3A.15 15 weeks gestation of pregnancy
CPT/HCPCS: 81001; 87086; 99283; 99284

== ENCOUNTER 2019-10-12 09:34 | Outpatient (CLI) | payer OTHER ==
[2019-10-12 10:23] LABS: RUPTURE OF MEMBRANES PLUS POSITIVE (NEGATIVE)
[2019-10-12 10:30] VITALS: BP 116/61
[2019-10-12 12:31] LABS: CANDIDA GROUP DNA NEGATIVE (NEGATIVE); CANDIDA KRUSEI DNA NEGATIVE (NEGATIVE); TRICHOMONAS VAGINALIS DNA NEGATIVE (NEGATIVE)
[2019-10-12 21:58] LABS: TRICHOMONAS VAGINALIS DNA NEGATIVE (NEGATIVE)
--- NOTE | 2019-10-13 13:54 | PROVIDER PROGRESS NOTE ---
Subjective - Subjective Subjective: CC: LOF HPI: had leaking of water, felt different than discharge, did not feel like urine, happened yesterday and again today. Didn't leak continuously between. No VB. No UC AVSS EFG normal. Neg pool, neg valsalva, neg nitrizine, neg fern. Physiologic discharge seen. ROM plus test + MVP 3.7, good fluid surrounding entire fetus. A/P: +ROM plus test but remainder of SROM testing is normal. D/w MFM, they don't think that we need to admit for IV ampicillin while we are waiting to repeat testing later. Too young for transport if pt is ruptured. RTC tomorrow to repeat testing. Objective - Lab Results Other Labs: Lab Results x24hrs 10/12/19 Range/Units 10:22 Chlam trachomat DNA PCR NEGATIVE (NEGATIVE) N.gonorrhoeae DNA (PCR) NEGATIVE (NEGATIVE) T. vaginalis (PCR) NEGATIVE (NEGATIVE)
== END 2019-10-12 11:15 | disposition home or self-care (01) ==
LOC: WFO 09:34 → FBP 09:37 → WFO 11:15
PROVIDERS: ATTEND Obstetrics & Gynecology
DX: O26.899 Other specified pregnancy related conditions, unspecified trimester (principal); N89.8 Other specified noninflammatory disorders of vagina
CPT/HCPCS: 84112; 87491; 87591; 87661; 87801; 99213; 99214

== ENCOUNTER 2019-10-13 13:59 | Outpatient (CLI) | payer OTHER ==
[2019-10-13 14:34] VITALS: BP 115/75
--- NOTE | 2019-10-13 14:35 | PROVIDER PROGRESS NOTE ---
Subjective - Subjective Subjective: Had one further episode of scant leaking. Otherwise dry. No UC. No VB. Some FM. EFG normal, nl vagina. Neg fern, pool, valsalva, and nitirizine. US with good fluid surrounding the fetus. Likely BV causing leukorrhea, will treat with metronidazole. ROM plus sent again today. Regardless, have rulled out ROM>
[2019-10-13 14:55] LABS: RUPTURE OF MEMBRANES PLUS NEGATIVE (NEGATIVE)
== END 2019-10-13 14:38 | disposition home or self-care (01) ==
LOC: WFO 13:59 → FBP 14:04 → WFO 14:38
PROVIDERS: ATTEND Obstetrics & Gynecology
DX: O99.89 Other specified diseases and conditions complicating pregnancy, childbirth and the puerperium (principal); N89.8 Other specified noninflammatory disorders of vagina; Z3A.00 Weeks of gestation of pregnancy not specified
CPT/HCPCS: 84112

== ENCOUNTER 2019-10-18 22:20 | Outpatient (CLI) | payer OTHER ==
[2019-10-19 00:57] VITALS: BP 104/68
[2019-10-19 01:09] LABS: CANDIDA GROUP DNA NEGATIVE (NEGATIVE); CANDIDA KRUSEI DNA NEGATIVE (NEGATIVE); TRICHOMONAS VAGINALIS DNA NEGATIVE (NEGATIVE)
--- NOTE | 2019-10-19 01:22 | Ultrasound Report ---
Reason: check cervical length Procedure Date: 10/19/2019 Accession Number: [id number] / [id number] Procedure: US - OB Transvaginal CPT Code: Final Report FULL RESULT: EXAM: LIMITED OBSTETRICAL ULTRASOUND EXAM DATE: 10/19/2019 12:55 AM. CLINICAL HISTORY: Check cervical length. COMPARISON: None. TECHNIQUE: Real-time sonographic evaluation of the fetus performed by the farm loan representative. Multiple brand representative static images were saved for review. Additional transvaginal imaging to more accurately evaluate cervical length. DATING: Established EGA 22 weeks 3 days with HELENA 02/19/2020. GENERAL EVALUATION Vargas . Cardiac activity: 158 bpm. movement: Visualized. Presentation: Breech Placenta: Anterior position. Amniotic fluid: Normal. RISSA 20.5 cm. MVP 6.2 cm. MATERNAL STRUCTURES The cervix measures 4.5 cm transvaginally, and is closed. IMPRESSION: 1. Vargas live intrauterine with gestational age 22 weeks 3 days based on established HELENA. 2. The cervix measures 4.5 cm, and is closed. RADIA
--- NOTE | 2019-10-30 23:33 | PROVIDER PROGRESS NOTE ---
- HPI Chief Complaint: Other (28 yo at 22+3 wga presents with recent hx of BV and being on Flagyl as treatment. Has had 6 loose stools in the past 24 hours along with mid abdominal cramping which she rates a 4/10- 7/10. Denies contractions or vaginal bleeding, no LOF) Current : Vital Signs Temperature 98.5 F 10/18/19 22:32 Heart Rate 79 10/18/19 22:32 Respiratory Rate 18 10/18/19 22:32 Blood Pressure 104/68 10/18/19 22:32 O2 Saturation 100 10/18/19 22:32 Temperature 98.5 F 10/18/19 22:32 Heart Rate 79 10/18/19 22:32 Respiratory Rate 18 10/18/19 22:32 Blood Pressure 104/68 10/18/19 22:32 O2 Saturation 100 10/18/19 22:32 - Exam FFN neg vaginitis panel negative Cervical exam: closed/long/high Formal US: TVCL 4.5 cm - Procedures NST Procedure: Previable: dopplers 153 Service Date of procedure: 10/18/19 Findings: 28 yo at 22+3 wga with abdominal cramping after multiple episoides of diarrhea Diarrhea has ceased prior to presentation Prompted by flagyl prescribed for BV labor ruled out with negative FFN, TVCL 4.5 cm and reassuring cervical exam Neg vaginitis panel Recommend pushing fluids with electrolytes, such as watered down gatorade and water Reassured regarding labor FU with routine OB care
== END 2019-10-19 01:35 | disposition home or self-care (01) ==
LOC: WFO 22:20 → FBP 22:22 → WFO 10-19 01:35
PROVIDERS: ATTEND Obstetrics & Gynecology
DX: O99.612 Diseases of the digestive system complicating pregnancy, second trimester (principal); K52.1 Toxic gastroenteritis and colitis; R10.9 Unspecified abdominal pain; T37.3X5A Adverse effect of other antiprotozoal drugs, initial encounter; Z3A.22 22 weeks gestation of pregnancy
CPT/HCPCS: 76817; 82731; 87661; 87801; 99213

== ENCOUNTER 2021-12-14 16:30 | Emergency (ER) | payer OTHER ==
[2021-12-14 16:41] VITALS: BP 124/73
--- NOTE | 2021-12-14 16:50 | ED Physician Documentation ---
PD HPI HEAD INJURY - Stated complaint Stated Complaint: GLF/RT EAR INJ & FACE INJ - Chief complaint Chief Complaint: Trauma Hd/Nk - History obtained from History obtained from: Patient - Additional information Additional information: 31-year-old woman who is up-to-date on tetanus was taking the yard waste bin out and it got caught and she fell hitting the rim of it cutting her right ear and injuring the right side of the face. No head injury otherwise nor loss of consciousness. No headache. Declines pain medication. 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 PLUMBER: Breast reduction - Present Medications Home Medications: Ambulatory Orders Medication Instructions Recorded Confirmed Ciprofloxacin HCl [Cipro] 500 mg PO BID #6 tablet 12/14/21 - Allergies Allergies/Adverse Reactions: Allergies Allergy/AdvReac Type Severity Reaction Status Date / Time No Known Drug Allergies Allergy Verified 12/14/21 16:41 - Social History Does the pt smoke?: No Smoking Status: Never smoker Does the pt drink ETOH?: No Does the pt have substance abuse?: No - Immunizations Immunizations are current?: Yes - POLST Patient has POLST: No PD ED PE NORMAL - Vitals Vital signs reviewed: Yes - General General: Alert and oriented X 3, No acute distress - HEENT HEENT: PERRL, EOMI, Other (There is a small cut of the superior part of the pinna of the right ear incompletely evaluated on initial evaluation because of some overlying blood and clot. Will reevaluate after cleansing. No facial bony tenderness or limited range of motion of the jaw. No evidence of entrapment.) - Neck Neck: Supple, no meningeal sign, No bony TTP - Neuro Neuro: Alert and oriented X 3, Normal speech - Psych Psych: Normal mood, Normal affect Results - Vitals Vitals: Vital Signs - 24 hr 12/14/21 16:36 Temperature 36.5 C Heart Rate 74 Respiratory 16 Rate Blood Pressure 124/73 O2 Saturation 100 Oxygen O2 Source Room air Procedures - Laceration (location) R ear Length in cm: 2 Wound type: Curved, Stellate, Irregular, Flap Anesthesia: Lidocaine 1% with epi (Buffered auricular block with excellent anesthesia) Wound preparation: Irrigated copiously NS Skin layer closure: Nylon, Interrupted, Size #-0 - enter number (5-0), Sutures - enter # (6) Other: Tetanus UTD PD MEDICAL DECISION MAKING - ED course ED course: After irrigating the wound it became clear that she had about a 1 cm flap laceration that did impact the cartilage just a little bit. Probably not enough that she needs to go to a plastic surgeon, and I think primary skin closure augmented by some antipseudomonal antibiotics will be appropriate. Departure - Departure Disposition: 01 Home, Self Care Clinical Impression: Facial contusion Qualifiers: Encounter type: initial encounter Qualified Code(s): S00.83XA - Contusion of other part of head, initial encounter Laceration of right ear Qualifiers: Encounter type: initial encounter Qualified Code(s): S01.311A - Laceration without foreign body of right ear, initial encounter Condition: Good Record reviewed to determine appropriate education?: Yes Instructions: ED Laceration Facial Sutr Tape Prescriptions: Ciprofloxacin HCl [Cipro] 500 mg PO BID #6 tablet Comments: I sent your prescription electronically to [facility] in [place] for a few days worth of prophylactic antibiotics. Come back for any signs of infection which would include: Redness, swelling, drainage, increased pain, or fevers. You can wash it soap and water. Keep it covered and moist with bacitracin ointment which is available over the counter; avoid neosporin. Follow-up with your physician in 7 days for suture removal.
[2021-12-14] MEDS ORDERED: CIPROFLOXACIN 250 MG TABLET PO STA (17:08)
[2021-12-14] MEDS ORDERED: LIDOCAINE 1%-EPI 1:100000 20 ML MDV SUBQ STA (17:08)
[2021-12-14] MEDS ORDERED: BACITRACIN ZINC OINT 1 PACKET TOP STA (17:39)
== END 2021-12-14 17:53 | disposition home or self-care (01) ==
LOC: ED 16:30
DX: S01.311A Laceration without foreign body of right ear, initial encounter (principal); W01.198A Fall on same level from slipping, tripping and stumbling with subsequent striking against other object, initial encounter; Y93.H9 Activity, other involving exterior property and land maintenance, building and construction
CPT/HCPCS: 12011; 99282; A9270

== ENCOUNTER 2023-07-21 18:00 | Outpatient (CLI) | payer OTHER ==
[2023-07-21 21:22] LABS: BASOPHILS % (AUTO) 0.5 %; EOSINOPHILS # (AUTO) 0.1 10^3/uL (0.0-0.7); EOSINOPHILS % (AUTO) 1.5 %; HCT - HEMATOCRIT 40.7 % (37.0-47.0); LYMPHOCYTES # (AUTO) 2.4 10^3/uL (1.5-3.5); LYMPHOCYTES % (AUTO) 30.2 %; MEAN CORPUSCULAR HEMOGLOBIN 27.3 pg (27.0-31.0); MEAN CORPUSCULAR HGB CONC 31.9 g/dL (32.0-36.0); MEAN CORPUSCULAR VOLUME 85.5 fL (81.0-99.0); MEAN PLATELET VOLUME 10.4 fL (7.9-10.8); MONOCYTES # (AUTO) 0.5 10^3/uL (0.0-1.0); NEUTROPHILS # (AUTO) 4.9 10^3/uL (1.5-6.6); NEUTROPHILS % (AUTO) 61.5 %; PLT - PLATELET COUNT 338 10^3/uL (130-450); RED BLOOD COUNT 4.76 10^6/uL (4.20-5.40); RED CELL DISTRIBUTION WIDTH 12.7 % (12.0-15.0)
[2023-07-21 21:28] LABS: ALBUMIN 4.6 g/dL (3.2-5.5); ALBUMIN/GLOBULIN RATIO 1.9 (1.0-2.2); BILIRUBIN,TOTAL 0.3 mg/dL (0.2-1.0); CALCIUM 9.4 mg/dL (8.5-10.3); CREATININE 0.8 mg/dL (0.6-1.3); POTASSIUM 4.3 mmol/L (3.5-4.5)
== END 2023-07-21 18:15 | disposition home or self-care (01) ==
LOC: LAB.N 18:00
PROVIDERS: ATTEND Physician Assistant Medical
DX: R10.9 Unspecified abdominal pain (principal)
CPT/HCPCS: 36415; 80053; 83690; 85025; 87086

== ENCOUNTER 2023-12-06 11:28 | Outpatient (CLI) | payer OTHER ==
--- NOTE | 2023-12-06 19:34 | Ultrasound Report ---
PROCEDURE: Soft Tissue Head or Neck INDICATIONS: THYROID NODULE TECHNIQUE: Real-time scanning was performed of the thyroid gland, with image documentation. COMPARISON: None FINDINGS: Right: Thyroid lobe measures 5 x 1.7 x 1.7 cm, and is homogeneous in echotexture. Left: Thyroid lobe measures 4.5 x 1.9 x 1.4 cm, and is homogenous in echotexture. Isthmus: 0.3 cm thick. Nodule number: One Location: Left mid Size: 1.1 x 1.5 x 1.1 cm. Composition: Solid (2 points). Echogenicity: Hypoechoic (2 points). Shape: wider than tall (0 points). Margins: Smooth (0 points). Echogenic foci: None (0 points). Total points: 4 ACR TI-RADS category: TI-RADS 4: Moderately suspicious. IMPRESSION: Left mid thyroid nodule which is TI-RADS 4. Based on size, recommend follow-up in one year. ACR TI-RADS definitions and recommendations: TI-RADS 1 (benign): 0 points. FNA not needed. TI-RADS 2 (not suspicious): 2 points. FNA not needed. TI-RADS 3 (mildly suspicious): 3 points. "FNA if 2.5 cm or larger, follow up if 1.5 cm or larger (at 1, 3, and 5 years). TI-RADS 4 (moderately suspicious): 4-6 points. "FNA if 1.5 cm or larger, follow up if 1 cm or larger (at 1, 2, 3, and 5 years). TI-RADS 5 (highly suspicious): 7 points or more. "FNA if 1 cm or larger, follow up if 0.5 cm or larger (every year for 5 years). Reviewed by: Arcenio Suarez MD on 12/06/2023 7:32 PM PDT Approved by: Arcenio Suarez MD on 12/06/2023 7:32 PM PDT Station ID: [id number]
== END 2023-12-06 11:29 | disposition home or self-care (01) ==
LOC: DI 11:28
PROVIDERS: ATTEND Physician Assistant
DX: E04.1 Nontoxic single thyroid nodule (principal)

== ENCOUNTER 2024-01-20 09:42 | Outpatient (CLI) | payer OTHER ==
[2024-01-20] MEDS ORDERED: LIDOCAINE-MPF 1% 5 ML VIAL ONE (10:06)
[2024-01-20] MEDS: LIDOCAINE-MPF 1% 5 ML VIAL TD ONE (11:25)
[2024-01-20 11:43] LABS: THYROID STIMULATING HORMONE 0.98 uIU/mL (0.34-5.60)
--- NOTE | 2024-01-20 12:30 | Ultrasound Report ---
PROCEDURE: FNA Bx w/US Gdn 1st Les INDICATIONS: THYROID NODULE TECHNIQUE: The indications, alternatives, benefits, risks, and complications of the procedure were explained to the patient. Written informed consent was obtained and placed in the chart. The area of interest wa s examined sonographically and a site was chosen for ultrasound guided percutaneous sampling. The sk in was prepared and draped in the usual fashion, and anesthetized with 1% lidocaine infiltrated from the skin down to the lesion. Multiple passes were then performed, with contents emptied into an appr [facility] pathology specimen container. A bandage was applied to the area of access at completion of t he study. COMPARISON: 12/06/2023 FINDINGS: Location(s) of lesion(s) sampled: Left thyroid nodule [place]: 25 and 22 gauge hypodermic needles. Number of passes: 5 Medications: 1% lidocaine for local anaesthesia. Complications: None. IMPRESSION: Successful ultrasound-guided left thyroid nodule fine needle aspiration, with cytology results valnetin scott Reviewed by: Edgar Treadwell MD on 01/20/2024 12:28 PM PDT Approved by: Edgar Treadwell MD on 01/20/2024 12:28 PM PDT Station ID: [id number]
== END 2024-01-20 09:43 | disposition home or self-care (01) ==
LOC: DI 09:42
PROVIDERS: ATTEND Physician Assistant
DX: E04.1 Nontoxic single thyroid nodule (principal)
CPT/HCPCS: 10005; 36415; 84439; 84443